=== PATIENT | male | born 1995 | race Caucasian/White ===

== ENCOUNTER 2020-09-27 10:08 | Emergency (ER) | payer OTHER ==
[~2020-09-27] VITALS: Ht 182.9 cm; Wt 117.9 kg
[2020-09-27] MEDS ORDERED: NOHOMEMEDICATIONS (10:34)
[2020-09-27] MEDS ORDERED: FLEXERIL PO (11:46)
[2020-09-27] MEDS ORDERED: MEDROLDOSEPACK PO (11:46)
[2020-09-27] MEDS ORDERED: APAP W/CODEINE1 TA2 PO (11:47)
[2020-09-27 11:57] VITALS: BP 150/54
== END 2020-09-27 11:58 | disposition home or self-care (01) ==
LOC: M.ERS 10:08
DX: S06.0X1A Concussion with loss of consciousness of 30 minutes or less, initial encounter (principal); S16.1XXA Strain of muscle, fascia and tendon at neck level, initial encounter; Z90.89 Acquired absence of other organs; W20.8XXA Other cause of strike by thrown, projected or falling object, initial encounter; Y93.89 Activity, other specified; Y92.89 Other specified places as the place of occurrence of the external cause; Y99.0 Civilian activity done for income or pay